=== PATIENT | male | born 1995 | race Hispanic/Latino ===

== ENCOUNTER → 2022-10-31 | Day surgery (SDC) | payer OTHER ==
[~2022-10-31] MED LIST: FENTANYL CITRATE/PF 100MCG/2 ML INJ ONE; HYOSCYAMINE SULFATE 0.5 MG/ML INJ ONE; LIDOCAINE HCL 2% LOCAL INJ 5 ML SDV VIAL INJ ONE; PROPOFOL IV EMULSION 50 ML IV ONE
[2022-10-31 17:05] VITALS: BP 100/70
== END | disposition home or self-care (01) ==
LOC: OR 12:11
PROVIDERS: ATTEND Internal Medicine Gastroenterology
DX: K63.89 Other specified diseases of intestine (principal); K64.8 Other hemorrhoids; K60.2 Anal fissure, unspecified; J45.909 Unspecified asthma, uncomplicated
CPT/HCPCS: 45378; 88304; 88305; J1980; J2001